=== PATIENT | male | born 1955 | race Two or more races ===

== ENCOUNTER 2020-11-26 03:14 | Emergency (ER) | payer MEDICARE ==
[~2020-11-26] VITALS: Ht 165.1 cm; Wt 77.0 kg
[2020-11-26 04:32] VITALS: BP 160/85
== END 2020-11-26 04:41 | disposition home or self-care (01) ==
LOC: EMS 03:17
DX: F43.0 Acute stress reaction (principal); F17.200 Nicotine dependence, unspecified, uncomplicated
CPT/HCPCS: 99283